=== PATIENT | male | born 1945 | race Caucasian/White ===

== ENCOUNTER 2019-01-31 12:11 | Emergency (ER) | payer MEDICARE, OTHER ==
[~2019-01-31] VITALS: Ht 188 cm; Wt 155.0 kg
[~2019-01-31 12:11] MED LIST: ALBU8HFA PO; BUDE10.2 INH; FLO0.4C PO; GUAI120L55 PO; GUAI600T45 PO; HYDR-4383 PO; HYDR12.5 PO; IPRA3AMP9 NEB; LEVO750T21 PO; LOSA100T57 PO; PANT-47 PO; PRED10TA23 PO; SPIIN INH; SUMA25TA35 PO; TEST75GE TP; VARE1TAB21 PO
[2019-01-31] MEDS ORDERED: ondansetron 4mg rapidly disintigrating tab PO ONE ×2 (12:45→15:40)
[2019-01-31] MEDS ORDERED: HYDROcodone/acetaminophen 10/325mg tab PO ONE ×2 (12:45→15:40)
[2019-01-31 13:03] LABS: CLARITY,URINE CLEAR (Clear); COLOR,URINE YELLOW (Yellow); GLUCOSE, URINE NEGATIVE (Neg); KETONES,URINE NEGATIVE (Neg); LEUKOCYTE ESTERASE ,URINE NEGATIVE (Neg); NITRITES, URINE NEGATIVE (Neg); OCCULT BLOOD,URINE MODERATE (Neg); PROTEIN,URINE NEGATIVE (Neg); UROBILINOGEN,URINE 0.2 E.U/dL (0.2-1.0)
[2019-01-31 13:04] LABS: UA COLLECTION TYPE CLN CATCH MIDSTREAM
[2019-01-31 13:10] LABS: BASOPHILS % (AUTO) 0.6 % (0-1); EOSINOPHILS # (AUTO) 0.1 X10'3 (0-0.9); EOSINOPHILS % (AUTO) 1.7 % (0-6); HEMOGLOBIN 16.7 g/dl (14.0-17.9); LYMPHOCYTES # (AUTO) 0.6 X10'3 (1.1-4.8); LYMPHOCYTES % (AUTO) 7.7 % (21-51); MEAN CORPUSCULAR HEMOGLOBIN 28.4 PG (27.0-31.0); MEAN CORPUSCULAR HGB CONC 33.4 g/dL (33.0-36.5); MEAN CORPUSCULAR VOLUME 85.1 FL (78-98); MEAN PLATELET VOLUME 7.9 FL (7.4-10.4); MONOCYTES # (AUTO) 0.6 X10'3 (0-0.9); MONOCYTES % (AUTO) 6.7 % (2-12); NEUTROPHILS % (AUTO) 83.3 % (42-75); PLATELET COUNT 256 X10'3 (140-440); RED BLOOD COUNT 5.88 X10'6 (4.70-6.10); RED CELL DISTRIBUTION WIDTH 15.5 % (11.5-14.5); WHITE BLOOD COUNT 8.4 X10'3 (4.5-11.0)
[2019-01-31 13:20] LABS: COARSE GRANULAR CAST 0-3 /LPF (NEGATIVE); MUCUS STRANDS MODERATE /LPF (Neg); SQUAMOUS EPITHELIAL CELL,UR MODERATE /LPF (FEW)
[2019-01-31 13:23] LABS: ALANINE AMINOTRANSFERASE 34 U/L (12-78); ALBUMIN 3.3 G/DL (3.4-5.0); ALBUMIN/GLOBULIN RATIO 0.8 (1.1-1.5); ALKALINE PHOSPHATASE 93 IU/L (46-116); ANION GAP 5 (8-16); ASPARTATE AMINO TRANSFERASE 27 U/L (10-37); BILIRUBIN,TOTAL 0.4 MG/DL (0.1-1.0); BLOOD UREA NITROGEN 15 MG/DL (7-18); CALCIUM 8.7 MG/DL (8.5-10.1); CHLORIDE 103 MMOL/L (99-107); CREATININE 0.94 MG/DL (0.60-1.10); GLUCOSE 101 MG/DL (70-104); LIPASE 93 U/L (73-393); POTASSIUM 4.3 MMOL/L (3.5-5.1); SODIUM 136 MMOL/L (135-145); TOTAL CARBON DIOXIDE 28.2 MMOL/L (24-32); TOTAL PROTEIN 7.4 G/DL (6.4-8.2); eGFR 79 ML/MIN
[2019-01-31 13:24] LABS: RBC,URINE 20-50 /HPF (0-2)
[2019-01-31 13:25] LABS: CAL OXALATE CRYSTALS 2+ /HPF (NEGATIVE)
[2019-01-31 13:30] LABS: BACTERIA,URINE FEW /HPF (Neg); WBC,URINE 0-4 /HPF (0-4)
[2019-01-31] MEDS ORDERED: HYDROmorphone 1 mg/ml syringe IM ONE (13:50)
[2019-01-31] MEDS ORDERED: PRED20TA PO (15:28)
[2019-01-31] MEDS ORDERED: ALBU18HF2 INH (15:28)
[2019-01-31] MEDS ORDERED: HYDR-4353 PO (15:28)
[2019-01-31] MEDS ORDERED: DOXY100C43 PO (15:28)
[2019-01-31] MEDS ORDERED: ONDA4TAB6 PO (15:28)
[2019-01-31 15:46] VITALS: BP 167/95
== END 2019-01-31 15:47 | disposition home or self-care (01) ==
LOC: ER 12:14
DX: S22.32XA Fracture of one rib, left side, initial encounter for closed fracture (principal); J20.9 Acute bronchitis, unspecified; R07.89 Other chest pain; E78.00 Pure hypercholesterolemia, unspecified; J44.9 Chronic obstructive pulmonary disease, unspecified; K21.9 Gastro-esophageal reflux disease without esophagitis; Z88.0 Allergy status to penicillin; Z79.899 Other long term (current) drug therapy; Z85.51 Personal history of malignant neoplasm of bladder; X58.XXXA Exposure to other specified factors, initial encounter; Y93.89 Activity, other specified; Y92.89 Other specified places as the place of occurrence of the external cause; Y99.9 Unspecified external cause status
CPT/HCPCS: 36415; 74176; 80053; 81001; 83690; 85025; 96372; 99284; J1170

== ENCOUNTER 2019-08-13 12:57 | Inpatient (IN) | payer MEDICARE, OTHER ==
[2019-08-13] VITALS (11 sets, daily range): BP systolic 123–157; BP diastolic 77–108
[~2019-08-13] VITALS: Ht 188 cm; Wt 165.7 kg
[~2019-08-13 12:57] MED LIST changes: +ALBU18HF2 INH; +ONDA4TAB6 PO
[2019-08-13 13:26] LABS: BASOPHILS # (AUTO) 0.1 X10'3 (0-0.2); EOSINOPHILS # (AUTO) 0.3 X10'3 (0-0.9); EOSINOPHILS % (AUTO) 3.8 % (0-6); HEMATOCRIT 46.9 % (42.0-52.0); HEMOGLOBIN 15.7 g/dl (14.0-17.9); LYMPHOCYTES # (AUTO) 1.8 X10'3 (1.1-4.8); MEAN CORPUSCULAR HEMOGLOBIN 29.4 PG (27.0-31.0); MEAN CORPUSCULAR HGB CONC 33.6 g/dL (33.0-36.5); MEAN CORPUSCULAR VOLUME 87.5 FL (78-98); MEAN PLATELET VOLUME 7.4 FL (7.4-10.4); MONOCYTES # (AUTO) 0.7 X10'3 (0-0.9); MONOCYTES % (AUTO) 7.4 % (2-12); NEUTROPHILS # (AUTO) 6.1 X10'3 (1.8-7.7); NEUTROPHILS % (AUTO) 67.8 % (42-75); PLATELET COUNT 312 X10'3 (140-440); RED BLOOD COUNT 5.36 X10'6 (4.70-6.10); WHITE BLOOD COUNT 9.1 X10'3 (4.5-11.0)
[2019-08-13 13:38] LABS: ALANINE AMINOTRANSFERASE 35 U/L (12-78); ALBUMIN 3.3 G/DL (3.4-5.0); ALBUMIN/GLOBULIN RATIO 0.9 (1.1-1.5); ALKALINE PHOSPHATASE 68 IU/L (46-116); ANION GAP 9 (8-16); ASPARTATE AMINO TRANSFERASE 21 U/L (10-37); BILIRUBIN,TOTAL 0.3 MG/DL (0.1-1.0); BLOOD UREA NITROGEN 17 MG/DL (7-18); BUN/CREATININE RATIO 16.8 (5.4-32.0); CALCIUM 8.3 MG/DL (8.5-10.1); CHLORIDE 108 MMOL/L (99-107); CREATININE 1.01 MG/DL (0.60-1.10); GLUCOSE 101 MG/DL (70-104); POTASSIUM 4.2 MMOL/L (3.5-5.1); SODIUM 144 MMOL/L (135-145); TOTAL CARBON DIOXIDE 26.6 MMOL/L (24-32); TOTAL PROTEIN 6.8 G/DL (6.4-8.2); eGFR 73 ML/MIN
[2019-08-13 13:45] LABS: MAGNESIUM 1.9 MG/DL (1.5-2.4)
[2019-08-13] MEDS ORDERED: heparin 25,000 UNIT/250ml bag 250 ML IV SCH ×2 (13:48→15:44)
[2019-08-13] MEDS ORDERED: heparin 10,000 units/1 ML INJ IV PRN ×2 (13:50→15:45)
[2019-08-13] MEDS ORDERED: heparin 10,000 units/1 ML INJ IV ONE ×3 (13:50→15:45)
[2019-08-13] MEDS ORDERED: nitroGLYCERIN-Tridil 50MG/D5W 250 ML IV SCH ×2 (13:50→13:57)
[2019-08-13 14:05] LABS: PARTIAL THROMBOPLASTIN TIME 27 SECONDS (22-32)
[2019-08-13] MEDS ORDERED: iohexol 350MG/ML 100ml bottle IV ONE ×3 (14:13→18:33)
[2019-08-13] MEDS ORDERED: magnesium 2GM in 50ml NS 50 ML IV PRN (15:45)
[2019-08-13] MEDS ORDERED: acetaminophen 325mg tablet PO PRN (15:45)
[2019-08-13] MEDS ORDERED: magnesium Cl slow-release 64mg tablet PO PRN (15:45)
[2019-08-13] MEDS ORDERED: ondansetron/PF 4mg/2ml inj IV PRN (15:45)
[2019-08-13] MEDS ORDERED: bisacodyl 10mg suppository rectal RC PRN (15:45)
[2019-08-13] MEDS ORDERED: aminophylline 250mg/10ml inj. IV PRN (15:45)
[2019-08-13] MEDS ORDERED: potassium Cl 20 mEq SR tablet PO PRN ×2 (15:45)
[2019-08-13] MEDS ORDERED: potassium CL 10mEq/100ml bag 100 ML IV PRN ×2 (15:45)
[2019-08-13] MEDS ORDERED: nitroGLYCERIN 0.4mg SUBLingual tab SL PRN ×2 (15:45)
[2019-08-13] MEDS ORDERED: mag hydrox/Alum hydrox/simeth 30ml oral suspension PO PRN (15:45)
[2019-08-13] MEDS ORDERED: HYDROcodone/acetaminophen 10/325mg tab PO PRN ×2 (15:45→17:30)
[2019-08-13] MEDS ORDERED: morphine 2 MG/ML inj. syringe IV PRN ×2 (15:45)
[2019-08-13] MEDS ORDERED: magnesium 4gm in 100ml NS 100 ML IV PRN (15:45)
[2019-08-13] MEDS ORDERED: metoprolol tartrate 1mg/ml inj IV PRN (15:45)
[2019-08-13] MEDS ORDERED: magnesium hydroxide 30ml (MOM) UD suspension PO PRN (15:45)
[2019-08-13] MEDS ORDERED: regadenoson 0.4mg/5ml syringe IV ONE (15:45)
[2019-08-13] MEDS ORDERED: ALBU8.5H8 INH (16:04)
[2019-08-13] MEDS ORDERED: FERGLU300T PO (16:06)
[2019-08-13] MEDS ORDERED: HYDR-4353 PO (16:08)
[2019-08-13] MEDS ORDERED: FURO-149 PO (16:11)
[2019-08-13] MEDS ORDERED: POTA-82 PO (16:12)
[2019-08-13] MEDS ORDERED: DOCU-261 PO (16:24)
[2019-08-13] MEDS ORDERED: VITA400C19 PO (16:24)
[2019-08-13] MEDS ORDERED: MULT-1172 PO (16:24)
[2019-08-13] MEDS ORDERED: CHOL100044 PO (16:24)
[2019-08-13 16:43] LABS: BASOPHILS # (AUTO) 0.1 X10'3 (0-0.2); BASOPHILS % (AUTO) 1.1 % (0-1); EOSINOPHILS # (AUTO) 0.3 X10'3 (0-0.9); EOSINOPHILS % (AUTO) 2.9 % (0-6); HEMATOCRIT 48.6 % (42.0-52.0); HEMOGLOBIN 16.2 g/dl (14.0-17.9); LYMPHOCYTES # (AUTO) 1.8 X10'3 (1.1-4.8); LYMPHOCYTES % (AUTO) 17.7 % (21-51); MEAN CORPUSCULAR HEMOGLOBIN 29.4 PG (27.0-31.0); MEAN CORPUSCULAR HGB CONC 33.4 g/dL (33.0-36.5); MEAN CORPUSCULAR VOLUME 88.1 FL (78-98); MEAN PLATELET VOLUME 7.5 FL (7.4-10.4); MONOCYTES # (AUTO) 0.6 X10'3 (0-0.9); MONOCYTES % (AUTO) 5.4 % (2-12); NEUTROPHILS # (AUTO) 7.6 X10'3 (1.8-7.7); NEUTROPHILS % (AUTO) 72.9 % (42-75); PLATELET COUNT 330 X10'3 (140-440); RED BLOOD COUNT 5.51 X10'6 (4.70-6.10); WHITE BLOOD COUNT 10.4 X10'3 (4.5-11.0)
[2019-08-13] MEDS: normal saline 1000ml 1,000 ML IV SCH (16:43)
--- NOTE | 2019-08-13 17:00 | NUR ---
PATIENT RECEIVED REPORT AND PATIENT FROM ER.PATIENT AWAKE ALERT AND ORIENTED. DENIES CHEST PAIN, NAUSEA, AND OR SOB.LAB REPORT SHOWS TROPIN INCREASED FROM 0.35 TO 2.13; DR. GUTIERRES AND DR. JULES APPRISED. HEPARIN INFUSING AT 1000 UNITS PER HOUR.NTG INFUSING AT 5 MCG/HOUR.DR. JULES AT BEDSIDE , ORDERS RECEIVED AND NOTED. PATIENT SIGNED CONSENT FOR HEART CATH. PREP COMPLETED ,PEDAL PULSES MARKED. TRANSFERRED TO PHYSICAL SCIENCES PROFESSOR. Addendum: 08/13/19 at 1857 by Arlene Salinas RN Amended: Links added.
--- NOTE | 2019-08-13 17:03 | NUR ---
PAGER ID: [phone] MESSAGE: 307: JILLIAN - 3 HR TROP UP TO 2.13, FROM 0.35. TY NURSE PAT [id number]
--- NOTE | 2019-08-13 17:03 | NUR ---
DR. ANDERSON CALLED BACK - NEW ORDER RECEIVED - CALL DR. JULES
--- NOTE | 2019-08-13 17:10 | NUR ---
CALLED DR. JULES ANSWER SERVICES CALLED: RELAYED MESSAGE THAT 3HR TROP IS INCREASED TO 2.13 FROM 0.35.
[2019-08-13] MEDS ORDERED: ipratropium/albuterol 3ml nebule NEB PRN (17:20)
--- NOTE | 2019-08-13 17:25 | NUR ---
DR. JULES AT BEDSIDE. AWAITING ORDERS
[2019-08-13] MEDS ORDERED: furosemide 40mg tablet PO PRN (17:30)
[2019-08-13] MEDS ORDERED: LIDOcaine 1% (10mg/ml)w/preservative injection 20ml MDV ONE (17:42)
[2019-08-13] MEDS ORDERED: midazolam 2 mg/2 ml injection ONE (17:42)
[2019-08-13] MEDS ORDERED: iohexol 350 MG/ML 50ML vial IV ONE ×2 (17:42→18:33)
[2019-08-13] MEDS ORDERED: fentaNYL/PF 50MCG/1 ML 2ML syringe ONE (17:42)
--- NOTE | 2019-08-13 18:04 | NUR ---
Dr. Neal consulted with patient, explained procedure. Consent signed by patient. Dr. Osei consulted with patient. All patient questions and concerns were addressed. Prepped for heart cath. Tidil infusion at 5mcg/min, Heparin infusion 1000u/hr, NS 100ml/hr. Pedal pulses marked, transferred to clinical lab clerk by JEROME Avery.
[2019-08-13] MEDS ORDERED: proCHLORperazine 10 MG/2 ml inj ONE (18:20)
--- NOTE | 2019-08-13 19:50 | NUR ---
Patient in room MED 307. I have received report from phlebotomist medical lab assistant RN and had the opportunity to ask questions and assume patient care.
[2019-08-13] MEDS: budesonide 0.5mg/2ml UD nebule IH SCH (19:52)
[2019-08-13] MEDS: ipratropium/albuterol 3ml nebule IH SCH (19:52)
--- NOTE | 2019-08-13 19:52 | NUR ---
pt arrived to unit fem stop present, no hematoma present, no bleeding noted. pedal pulse present. monitoring vitals/ protocol. heparin drip d/c.
[2019-08-13] MEDS ORDERED: clopidogrel 300mg tablet PO ONE (19:55)
[2019-08-13] MEDS ORDERED: OXAZEpam 15mg capsule PO PRN (20:00)
[2019-08-13] MEDS ORDERED: proCHLORperazine 10 MG/2 ml inj IV PRN (20:00)
[2019-08-13] MEDS ORDERED: HYDROcodone/acetaminophen 5mg/325mg tablet PO PRN (20:00)
[2019-08-13] MEDS ORDERED: albuterol 2.5 MG/3 ML nebule NEB SCH (20:00)
[2019-08-13] MEDS ORDERED: ipratropium 0.5 MG/2.5ML nebule IH SCH (20:00)
[2019-08-13] MEDS: metoprolol tartrate 12.5mg (1/2 tablet) PO SCH (20:12)
[2019-08-13] MEDS: acetaminophen 325mg tablet PO PRN (20:13)
--- NOTE | 2019-08-13 20:48 | NUR ---
Dr. Blake notified r/t SBP greater than 150. no chest pain new orders as followed, increase nitroglycerin drip to 10 mcg/min = 3ml/hr new parameter, maintain SBP 140 or less. cpap PRN will continue to monitor
[2019-08-13] MEDS: losartan 50mg tablet PO SCH (21:04)
[2019-08-13] MEDS: atorvastatin 20mg tablet PO SCH (21:04)
[2019-08-13 21:32] LABS: PARTIAL THROMBOPLASTIN TIME 27 SECONDS (22-32)
[2019-08-13] MEDS: HYDROcodone/acetaminophen 10/325mg tab PO PRN (21:57)
[2019-08-14] VITALS (8 sets, daily range): BP systolic 114–176; BP diastolic 68–98
[2019-08-14] MEDS: normal saline 1000ml 1,000 ML IV SCH ×3 (02:40→21:44)
[2019-08-14] MEDS: ipratropium/albuterol 3ml nebule IH SCH ×4 (03:11→20:31)
[2019-08-14 05:38] LABS: BASOPHILS # (AUTO) 0.1 X10'3 (0-0.2); BASOPHILS % (AUTO) 0.6 % (0-1); EOSINOPHILS # (AUTO) 0.3 X10'3 (0-0.9); EOSINOPHILS % (AUTO) 2.6 % (0-6); HEMATOCRIT 44.4 % (42.0-52.0); HEMOGLOBIN 14.7 g/dl (14.0-17.9); LYMPHOCYTES # (AUTO) 2.1 X10'3 (1.1-4.8); LYMPHOCYTES % (AUTO) 20.1 % (21-51); MEAN CORPUSCULAR HEMOGLOBIN 29.4 PG (27.0-31.0); MEAN CORPUSCULAR HGB CONC 33.1 g/dL (33.0-36.5); MEAN CORPUSCULAR VOLUME 88.7 FL (78-98); MEAN PLATELET VOLUME 7.9 FL (7.4-10.4); MONOCYTES # (AUTO) 0.7 X10'3 (0-0.9); MONOCYTES % (AUTO) 6.8 % (2-12); NEUTROPHILS # (AUTO) 7.4 X10'3 (1.8-7.7); NEUTROPHILS % (AUTO) 69.9 % (42-75); PLATELET COUNT 292 X10'3 (140-440); RED BLOOD COUNT 5.01 X10'6 (4.70-6.10); RED CELL DISTRIBUTION WIDTH 16.4 % (11.5-14.5); WHITE BLOOD COUNT 10.6 X10'3 (4.5-11.0)
[2019-08-14 05:59] LABS: ALBUMIN 3.1 G/DL (3.4-5.0); ANION GAP 8 (8-16); BLOOD UREA NITROGEN 13 MG/DL (7-18); CHLORIDE 109 MMOL/L (99-107); CHOL/HDL RATIO 4.6 (0.00-4.99); CHOLESTEROL 146 MG/DL (0-200); CREATININE 0.81 MG/DL (0.60-1.10); GLUCOSE 90 MG/DL (70-104); HDL CHOLESTEROL 32 MG/DL (35-60); LDL CHOLESTEROL 98 MG/DL (50-100); POTASSIUM 3.9 MMOL/L (3.5-5.1); SODIUM 144 MMOL/L (135-145); TOTAL CARBON DIOXIDE 26.7 MMOL/L (24-32); TRIGLYCERIDES 123 MG/DL (20-135); eGFR > 90 ML/MIN
--- NOTE | 2019-08-14 06:15 | NUR ---
Patient in room MED 307. I have received report from JEROME Sexton and had the opportunity to ask questions and assume patient care.
[2019-08-14] MEDS: losartan 50mg tablet PO SCH ×2 (07:47→20:19)
[2019-08-14] MEDS: tamsulosin 0.4mg capsule PO SCH (07:47)
[2019-08-14] MEDS: atorvastatin 20mg tablet PO SCH (07:47)
[2019-08-14] MEDS: aspirin 325mg tablet PO SCH (07:48)
[2019-08-14] MEDS: metoprolol tartrate 12.5mg (1/2 tablet) PO SCH ×2 (07:48→20:22)
[2019-08-14] MEDS: clopidogrel 75mg tablet PO SCH (07:48)
[2019-08-14] MEDS: HYDROcodone/acetaminophen 10/325mg tab PO PRN ×3 (07:48→21:07)
[2019-08-14] MEDS: amLODIPine 5mg tablet PO SCH (07:48)
[2019-08-14] MEDS: budesonide 0.5mg/2ml UD nebule IH SCH ×2 (08:00→20:31)
[2019-08-14] MEDS: K and/or MAG REPLACEMENT MC SCH (08:00)
[2019-08-14] MEDS ORDERED: losartan 50mg tablet PO SCH (08:00)
--- NOTE | 2019-08-14 10:06 | NUR ---
PAGER ID: [phone] MESSAGE: [phone]: LOBO - c/o severe headache. unrelieved w/ Russell. still on tridil gtt @ 10mcg/min. bp stable 111/68. decrease tridil to 5mcg or just turn off gtt? nurse claudio [phone]
--- NOTE | 2019-08-14 10:30 | NUR ---
SPOKE WITH DR. VERGARA. NEW ORDERS RECEIVED: DECREASE NITRO GTT TO 5MCG/MIN. WILL CONTINUE TO MONITOR
[2019-08-14] MEDS ORDERED: nitroGLYCERIN-Tridil 50MG/D5W 250 ML IV SCH ×2 (10:35→13:57)
--- NOTE | 2019-08-14 11:26 | NUR ---
Nitroglycerin drip reduced to 1.5ml/hr (5mcg/min), per Dr. Osei.
--- NOTE | 2019-08-14 12:00 | NUR ---
Patient reports constant headache and that [place] has not worked. Administered Morphine 1mg.
--- NOTE | 2019-08-14 13:00 | NUR ---
Patient reported the Morphine was effective.
--- NOTE | 2019-08-14 13:31 | NUR ---
Per roque Avila for patient to be saline locked for ambulation. Encourage ambulations.
--- NOTE | 2019-08-14 14:32 | NUR ---
DR. JULES UPDATED. NEW ORDERS RECEIVED: D/C NITRO GTT, AMBULATE PATIENT. WILL CONTINUE TO MONITOR
--- NOTE | 2019-08-14 14:36 | NUR ---
PAGER ID: [phone] MESSAGE: 307: JILLIAN - new orders from Ángel. D/C nitro gtt, no new meds at this time. Cont ASA, Plavix, Lopressor. nurse Stefany ext [phone]
--- NOTE | 2019-08-14 15:22 | NUR ---
Radiology paged, patient transported by [employer].
--- NOTE | 2019-08-14 17:12 | NUR ---
PAGER ID: [phone] MESSAGE: Aubrey Maxwell, #[phone] - Pt requests Nicotine patch. Uses 21mg patches at home. Thank you -JEROME Guadalupe on ACCE
--- NOTE | 2019-08-14 18:00 | NUR ---
Problems reprioritized. Patient report given, questions answered & plan of care reviewed with JEROME Herbert.
[2019-08-14] MEDS ORDERED: nitroGLYCERIN 0.2mg/hour patch TD ONE (21:30)
[2019-08-14] MEDS: acetaminophen 325mg tablet PO PRN (23:33)
[2019-08-15 02:00] VITALS: BP 150/77
[2019-08-15] MEDS: HYDROcodone/acetaminophen 10/325mg tab PO PRN ×2 (02:22→08:16)
[2019-08-15] MEDS: ipratropium/albuterol 3ml nebule IH SCH ×3 (03:00→13:22)
[2019-08-15 06:29] LABS: BASOPHILS # (AUTO) 0.1 X10'3 (0-0.2); BASOPHILS % (AUTO) 0.8 % (0-1); EOSINOPHILS # (AUTO) 0.3 X10'3 (0-0.9); EOSINOPHILS % (AUTO) 3.2 % (0-6); HEMATOCRIT 45.2 % (42.0-52.0); HEMOGLOBIN 15.2 g/dl (14.0-17.9); LYMPHOCYTES # (AUTO) 1.9 X10'3 (1.1-4.8); LYMPHOCYTES % (AUTO) 21.3 % (21-51); MEAN CORPUSCULAR HEMOGLOBIN 29.6 PG (27.0-31.0); MEAN CORPUSCULAR HGB CONC 33.6 g/dL (33.0-36.5); MEAN PLATELET VOLUME 7.7 FL (7.4-10.4); MONOCYTES # (AUTO) 0.7 X10'3 (0-0.9); MONOCYTES % (AUTO) 7.7 % (2-12); NEUTROPHILS # (AUTO) 5.9 X10'3 (1.8-7.7); PLATELET COUNT 285 X10'3 (140-440); RED BLOOD COUNT 5.14 X10'6 (4.70-6.10); RED CELL DISTRIBUTION WIDTH 15.8 % (11.5-14.5); WHITE BLOOD COUNT 8.8 X10'3 (4.5-11.0)
[2019-08-15 06:46] VITALS: BP 133/90
[2019-08-15 06:47] LABS: ALBUMIN 3.3 G/DL (3.4-5.0); ANION GAP 8 (8-16); BLOOD UREA NITROGEN 15 MG/DL (7-18); BUN/CREATININE RATIO 18.1 (5.4-32.0); CALCIUM 8.1 MG/DL (8.5-10.1); CHLORIDE 108 MMOL/L (99-107); CREATININE 0.83 MG/DL (0.60-1.10); GLUCOSE 98 MG/DL (70-104); PHOSPHORUS 3.3 MG/DL (2.3-4.5); POTASSIUM 4.2 MMOL/L (3.5-5.1); SODIUM 143 MMOL/L (135-145); TOTAL CARBON DIOXIDE 26.6 MMOL/L (24-32); eGFR > 90 ML/MIN
[2019-08-15] MEDS: budesonide 0.5mg/2ml UD nebule IH SCH (07:35)
[2019-08-15] MEDS: K and/or MAG REPLACEMENT MC SCH (08:00)
[2019-08-15] MEDS: aspirin 325mg tablet PO SCH (08:03)
[2019-08-15] MEDS: clopidogrel 75mg tablet PO SCH (08:04)
[2019-08-15] MEDS: tamsulosin 0.4mg capsule PO SCH (08:04)
[2019-08-15] MEDS: metoprolol tartrate 12.5mg (1/2 tablet) PO SCH (08:04)
[2019-08-15] MEDS: amLODIPine 5mg tablet PO SCH (08:05)
[2019-08-15] MEDS: atorvastatin 20mg tablet PO SCH (08:06)
[2019-08-15] MEDS: losartan 50mg tablet PO SCH (08:06)
[2019-08-15 11:00] VITALS: BP 144/90
[2019-08-15] MEDS ORDERED: NOR5T PO (12:04)
[2019-08-15] MEDS ORDERED: CLOP75TA35 PO (12:04)
[2019-08-15] MEDS ORDERED: NITR0.4T51 SL (12:04)
[2019-08-15] MEDS ORDERED: ASPI-1 PO (12:04)
[2019-08-15] MEDS ORDERED: METO25TA6 PO (12:04)
[2019-08-15] MEDS ORDERED: ATOR20TA66 PO (12:04)
[2019-08-15] MEDS: acetaminophen 325mg tablet PO PRN (13:40)
--- NOTE | 2019-08-15 14:05 | NUR ---
Discharged patient at this time, escorted out at 1405 to patient private vehicle via W/C accompanied with son and daughter in law without event. Instructed patient on discharge instructions and to pickup meds at [facility] on [address]. Dr. Neal wants patient to call his office tomorrow to schedule follow up O.P. heart cath, informed patient to call Dr. Neal office tomorrow. Discontinued IV and tele. Belongings sent with patient. Cleansed small open area to right upper chest and covered it with optifoam and told him to make MD aware of the origin of the wound. Eager to go home.
== END 2019-08-15 14:05 | disposition home or self-care (01) | DRG 281 ==
LOC: ER 12:58 → ED HOLD 16:01 → EDBEDREQ 16:04 → MED 3N 16:50 → OBSVTOIN 08-14 13:30
PROVIDERS: ADMIT Family Medicine; ATTEND Family Medicine
PROC: 4A023N7 Measurement of Cardiac Sampling and Pressure, Left Heart, Percutaneous Approach (ICD-10-PCS; principal; 2019-08-13)
PROC: B2111ZZ Fluoroscopy of Multiple Coronary Arteries using Low Osmolar Contrast (ICD-10-PCS; 2019-08-13)
PROC: B2151ZZ Fluoroscopy of Left Heart using Low Osmolar Contrast (ICD-10-PCS; 2019-08-13)
PROC: B3101ZZ Fluoroscopy of Thoracic Aorta using Low Osmolar Contrast (ICD-10-PCS; 2019-08-13)
PROC: B32T1ZZ Computerized Tomography (CT Scan) of Left Pulmonary Artery using Low Osmolar Contrast (ICD-10-PCS; 2019-08-13)
PROC: B3201ZZ Computerized Tomography (CT Scan) of Thoracic Aorta using Low Osmolar Contrast (ICD-10-PCS; 2019-08-13)
PROC: B32S1ZZ Computerized Tomography (CT Scan) of Right Pulmonary Artery using Low Osmolar Contrast (ICD-10-PCS; 2019-08-13)
DX: I21.4 Non-ST elevation (NSTEMI) myocardial infarction (principal); Z68.42 Body mass index [BMI] 45.0-49.9, adult; C67.9 Malignant neoplasm of bladder, unspecified; E66.01 Morbid (severe) obesity due to excess calories; E78.00 Pure hypercholesterolemia, unspecified; F41.1 Generalized anxiety disorder; G47.33 Obstructive sleep apnea (adult) (pediatric); G89.4 Chronic pain syndrome; M54.5 Low back pain; I10 Essential (primary) hypertension; I25.119 Atherosclerotic heart disease of native coronary artery with unspecified angina pectoris; J43.9 Emphysema, unspecified; K21.9 Gastro-esophageal reflux disease without esophagitis; K76.89 Other specified diseases of liver; Z72.0 Tobacco use; Z85.828 Personal history of other malignant neoplasm of skin; Z85.841 Personal history of malignant neoplasm of brain; Z88.0 Allergy status to penicillin; Z82.5 Family history of asthma and other chronic lower respiratory diseases; Z80.9 Family history of malignant neoplasm, unspecified; I44.0 Atrioventricular block, first degree
CPT/HCPCS: 36415; 71045; 71275; 80048; 80053; 80061; 83735; 83880; 84100; 84484; 85025; 85347; 85610; 85730; 87081; 93005; 93308; 93458; 93567; 94640; 94760; 96365; 96376; 99152; 99153; 99285; A4620; A6258; C1769; G0378; J0780; J1644; J2001; J2250; J2270; J3010; J3490; J7030; J7626; Q9967

== ENCOUNTER 2025-08-14 00:28 | Inpatient (IN) | payer OTHER, MEDICARE ==
[2025-08-14] VITALS (14 sets, daily range): BP systolic 140–141; BP diastolic 77–79; PULSE 59–83; RESP 15–22; TEMP 97–97.3; O2SAT 90–93
[~2025-08-14] VITALS: Ht 188 cm; Wt 184.0 kg
[~2025-08-14 00:28] MED LIST changes: -ALBU18HF2 INH; +ALBU8.5H17 INH; -ALBU8HFA PO; +ASPI-1 PO; +ATOR20TA66 PO; +CHOL100044 PO; +CLOP75TA34 PO; +DOCU-337 PO; +FERR324T23 PO; -FLO0.4C PO; +FURO-149 PO; -GUAI120L55 PO; -GUAI600T45 PO; +HYDR-4353 PO; -HYDR-4383 PO; -HYDR12.5 PO; -IPRA3AMP9 NEB; -LEVO750T21 PO; +LOP25T PO; -LOSA100T57 PO; +LOSA100T58 PO; +MULT-1172 PO; +NITR0.4T51 SL; +NOR5T PO; -ONDA4TAB6 PO; -PANT-47 PO; +POTA-366 PO; -PRED10TA23 PO; -SUMA25TA35 PO; +TAMS-55 PO; -TEST75GE TP; -VARE1TAB21 PO; +VITA-336 PO
--- NOTE | 2025-08-14 00:42 | ELECTROCARDIOGRAPH REPORT ---
[facility] Test Date: 2025-08-14 Test Time: 00:39:05 Pat Name: MATTIE WALSH Department: EMERGENCY ROOM Patient ID: 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 Elmer Pelaez Measurements Intervals [place] Rate: 72 P: 121 ID: [id number] QRS: 11 QRSD: 112 T: 66 QT: 429 QTc: 470 Interpretive Statements Sinus rhythm Prolonged ID interval Borderline intraventricular conduction delay Electronically Signed On 08-14-2025 1:05:[address] Elmer Pelaez Please click the below link to view image of tracing.
[2025-08-14 01:22] LABS: MEAN PLATELET VOLUME 7.5 FL (7.4-10.4); RED CELL DISTRIBUTION WIDTH 17.1 % (11.5-14.5)
[2025-08-14 01:41] LABS: CREATININE 1.02 MG/DL (0.60-1.10); PRO BRAIN NATRIURETIC PEPTIDE 280 PG/ML (0-450); TOTAL CARBON DIOXIDE 37.2 MMOL/L (24-32); eCRCL 69 ML/MIN; eGFR 71 ML/MIN
--- NOTE | 2025-08-14 02:48 | RADIOLOGY REPORT ---
CHEST RADIOGRAPH Indication: CP Technique: 1 view Comparison: None FINDINGS: Lines and Tubes: None Lungs/Pleura: Bilateral perihilar interstitial prominence. No focal consolidation, pleural effusion or pneumothorax. Cardiomediastinum: Cardiomegaly. Other: No acute osseous abnormality. IMPRESSION: 1. Heart failure pattern. No focal consolidation.
--- NOTE | 2025-08-14 03:19 | Physician Documentation ---
History of Present Illness ~ Chief Complaint: Shortness of Breath Stated Complaint: SOB Time Seen by MD: 03:12 OK to notify your PCP?: Yes Primary Medical Doctor: HUSSEIN Source: patient, RN/MD, EMS, RN notes reviewed, EMS notes reviewed, old records Mode of Arrival: EMS Exam Limitations: no limitations HPI This was brought in for shortness of breath he fell earlier in the day requiring lift assist. Patient is not on any blood thinners had no head trauma. No loss of consciousness. Patient does have a history of COPD and heart failure he is also on home oxygen with 2-4 L and usually sats at 90%. Patient was given a duo neb in the field and had an oxygen saturation of 99% but is now here for evaluation. 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 He has a large 4 x 4 mass to his left forearm. However while he was at the facility he required oxygen which is new. He was up to 4 L of oxygen his sats were at 80% and they canceled the surgery because they wanted him at a higher level. Surgery was canceled he comes back home where he has been having increasing shortness of breath difficulty breathing he fell he had three nebulized treatments today which is unusual. His last neb treatment by EMS and ambulance patient is feeling much better. Nevertheless he is on 4-6 L which is more than his baseline of 2 L which is usually intermittent. He now seems to be oxygen dependent. Patient denies any chest pain no fevers chills no sputum production he is feeling weak falling and short of breath. Medication Reconciliation Allergies: Coded Allergies: Penicillins (Verified Allergy, Mild, 02/23/16) morphine (Verified Adverse Reaction, Unknown, 08/14/25) RASH, HEADACHE Scheduled Amlodipine Besylate (Amlodipine Besylate), 5 MG PO Q24H Aspirin (Aspirin), 325 MG PO DAILY@0830 Atorvastatin Calcium (Atorvastatin Calcium), 80 MG PO DAILY Budesonide/Formoterol Fumarate (Symbicort 160-4.5 Mcg Inhaler), 2 PUFFS INH BID, (Reported) Cholecalciferol (Vitamin D), 4,000 UNIT PO DAILY, (Reported) Clopidogrel Bisulfate (Clopidogrel), 75 MG PO DAILY Docusate Sodium (Stool Softener), Unknown Dose PO BID, (Reported) Ferrous Gluconate (Ferrous Gluconate), 324 MG PO BID, (Reported) Losartan Potassium (Losartan Potassium), 0.5 TABLET PO DAILY, (Reported) Metoprolol Tartrate* (Lopressor tablet*), 12.5 MG PO BID Multivit-Min/FA/Lycopen/Lutein (Centrum Silver Men Tablet), 1 TAB PO DAILY, (Reported) Tamsulosin Hcl* (Flomax*), 2 CAP PO DAILY, (Reported) Tiotropium [place] (SPIRIVA inhaler), 1 CAP INH DAILY, (Reported) Vitamin E (Dl, Acetate) (Vitamin E), 400 UNIT PO DAILY, (Reported) Scheduled PRN Albuterol Sulfate (Proair Hfa), 2 PUFFS INH Q4HPRN PRN for SOB or wheezing, (Reported) Furosemide (Lasix), 1 TAB PO DAILY PRN for EDEMA, (Reported) Hydrocodone Bit/Acetaminophen ([place] 10-325 Tablet), 1 TAB PO Q8H PRN for pain, (Reported) Nitroglycerin SL* (Nitrostat SL*), 0.4 MG SL Q5MIN PRN for chest pain Potassium Chloride (Potassium Chloride), 1 TAB PO DAILY PRN for CONCURRENT WITH LASIX, (Reported) Past Medical History Past Medical History: High Cholesterol, COPD, Pneumonia, GERD, *CANCER*, Brain Cancer Past Surgical History: no surgical history Patient History: (COPD) Chronic obstructive lung disease MOTHER (Cancer) Malignant carcinoid tumor MOTHER, Onset:60 years & older (Breast) Alcohol Use: Rarely Drug Use: none Lives with: Family Lives In: Home Occupation: retired Review of Systems All Other Systems at this time: Reviewed and Negative Physical Exam Vital Signs: RN Vital Signs have been reviewed: Yes, Temperature: 98.2, Source: Oral, Heart Rate: 76, Respiratory Rate: 17, BP: 148/90, Pulse Oximetry: 92, Weight: 184.000 Oxygen Flow Rate: 2.0 Physical Exam General: The patient is well developed, well nourished, nontoxic appearing and is in mild acute distress. Morbidly obese Skin: [place], warm and dry with no rashes. HEENT: Head was normocephalic and atraumatic. Eyes - pupils equal, round, reactive to light and accommodation. Extraocular movements were intact. Conjunctivae were nonicteric. The mouth and oropharynx were clear with moist mucous membranes. There were no pharyngeal exudates or erythema. Lips are slightly cyanotic with central cyanosis Neck: Supple and nontender. There was no jugular venous distention, lymphadenopathy, thyromegaly or masses. Chest: Clear to auscultation bilaterally with trace diffuse expiratory wheezes, trace basilar rales no rhonchi. No accessory muscle use. No dullness to percussion. Poor air movement Heart: Rate regular and rhythmic. S1, S2. No murmurs. Palpation of the chest wall was normal. No rubs or thrills. Abdomen: Soft, nontender and distended. Positive bowel sounds. No guarding or rebound. No hepatosplenomegaly or palpable masses. Extremities: No cyanosis, clubbing or bilateral 2+ pitting edema. The patient moves all extremities. Pulses were equal and symmetric. Neurologic: Motor sensory grossly intact Psychologic: The patient was oriented to person, place and time. The patient demonstrated appropriate judgement and insight. Progress Progress Note 4:15 a.m. discussed the case with the hospitalist regarding treatment management both from heart failure, morbid obesity, [place] in breathing, hypercapnia, COPD exacerbation. Patient will be admitted for further workup and care. Results/Orders Results/Orders Orders - MELITON PELAEZ MD Chest,Single View (08/14/25 00:34) Monitor (08/14/25 00:34) Saline Lock (08/14/25 00:34) Oxygen (08/14/25 00:34) BMP (08/14/25 00:34) PBNP (08/14/25 00:34) Electrocardiogram (08/14/25 00:34) Hs Troponin I W Calculations (08/14/25 02:34) Hs Troponin I W Calculations (08/14/25 03:34) Svn Treatment (08/14/25 03:28) Culture Blood (08/14/25 03:29) Azithromycin/Ns 500mg/250ml (Zithromax/N (08/14/25 08:00) Hs Troponin I W Calculations (08/14/25 06:29) Page Hospitalist (08/14/25 03:33) Fill Out Med Reconciliation (08/14/25 03:33) Abg (Arterial Blood Gas) (08/14/25 ) Liver Panel (08/14/25 01:10) Completed Orders - MELITON PELAEZ MD Chest,Single View (08/14/25 00:34) Cbc/Diff (08/14/25 00:34) Electrocardiogram (08/14/25 00:34) Hs Troponin I W Calculations (08/14/25 00:34) Methylprednisolone Sod Succ (Solumedrol (08/14/25 03:30) Ipratropium/Albuterol Nebule (Ipratrop/A (08/14/25 03:30) Procalcitonin (08/14/25 03:29) Ceftriaxone 2gm/D5w 50ml Bag (Rocephin 2 (08/14/25 03:30) Lacticsepsis (08/14/25 03:29) Furosemide Inj (Lasix Inj) (08/14/25 03:35) Medications Received in ER Medications (Trade) Dose Ordered Sig/Gomez Route PRN Reason Start Time Stop Time Status Last Admin Dose Admin (ipratrop/ albuterol 0.5-3(2.5) MG/3ml nebule) 3 ml ONCE ONCE NEB 08/14/25 03:30 08/14/25 03:31 DC 08/14/25 03:47 3 ML Vital Signs 08/14/25 08/14/25 08/14/25 08/14/25 00:36 01:18 03:20 04:09 Temp 98.2 98.2 Pulse 76 76 77 Resp 23 17 17 20 B/P (MAP) 148/90 147/72 (97) Pulse Ox 92 91 92 O2 Delivery Nasal Cannula* O2 Flow Rate 2.0 4.0 3 FiO2 32 08/14/25 04:18 Pulse 71 Resp 20 Pulse Ox 92 O2 Delivery Nasal Cannula* O2 Flow Rate 4 FiO2 36 Laboratory Tests Test 08/14/25 01:10 08/14/25 03:57 White Blood Count 10.3 Red Blood Count 5.94 Hemoglobin 16.5 Hematocrit 51.3 Mean Corpuscular Volume 86.4 Mean Corpuscular Hemoglobin 27.8 Mean Corpuscular Hemoglobin Concent 32.1 L Red Cell Distribution Width 17.1 H Platelet Count 205 Mean Platelet Volume 7.5 Neutrophils (%) (Auto) 74.9 Lymphocytes (%) (Auto) 15.3 L Monocytes (%) (Auto) 6.9 Eosinophils (%) (Auto) 2.1 Basophils (%) (Auto) 0.8 Neutrophils # (Auto) 7.8 H Lymphocytes # (Auto) 1.6 Monocytes # (Auto) 0.7 Eosinophils # (Auto) 0.2 Basophils # (Auto) 0.1 CBC Comment Sodium Level 147 H Potassium Level 4.3 Chloride Level 106 Carbon Dioxide Level 37.2 H Anion Gap 4 L Blood Urea Nitrogen 19 H Creatinine 1.02 Estimated GFR/1.73 m2 71 BUN/Creatinine Ratio 18.6 Glucose Level 111 H Lactic Acid Level 1.0 Calcium Level 8.7 Troponin I High Sensitivity 24 Pro-B-Type Natriuretic Peptide 280 Albumin 2.8 L Procalcitonin 0.11 Chemistry Comments Blood Gas Specimen Type Arterial Blood Gas Puncture Site Lr O2 Saturation 89.3 L Arterial Blood pH (Temp corrected) 7.311 L Arterial Blood pCO2 (Temp correct) 57.3 H Arterial Blood pO2 (Temp corrected) 53.8 *L Arterial Blood PO2/FiO2 Ratio 1.61 Arterial Blood HCO3 28.4 H Arterial Blood Base Excess 0.4 Arterial Blood Oxyhemoglobin 82.5 L Arterial Blood Carboxyhemoglobin 7.6 H Arterial Blood Methemoglobin 0.0 Arterial Blood Deoxyhemoglobin 9.9 H Leonardo Test Modified Blood Gas Hemoglobin 17.7 H Blood Gas Temperature 36.7 Blood Gas Liter Flow 4 Blood Gas Modality Nasal cannula FiO2 34.0 Blood Gas Critical Value Called To Mian pelaez Re-Evaluation Re-evaluation : Bronchodilator Tx Response: moderate relief Re-Evaluation: Improved Progress This presents with increasing falls failed outpatient surgery due to low oxygenation and sats which is new for him. Patient has a history of COPD as well as heart failure. Patient is requiring increasing oxygen use and increasing nebulized treatments denies any PND or orthopnea although he does have superimposed heart failure issues as well with his hypoxia. Patient's initial laboratory work shows a WBC of 10.3 hemoglobin 16 hematocrit 51 platelets 205 which is reassuring in that there was no significant signs of infection. Patient's sodium slightly elevated at 147 which is above his baseline. He also has some CO2 retention with 37.2 on chemistry. Creatinine is 1.02. Troponin negative at 24. ProBNP 280. Patient is morbidly obese with a BMI of 52. Patient was then given nebulized treatments Lasix 60 mg as far as COPD exacerbation although I do not see any infiltrates he has a high-risk patient for decompensation from possible bronchitis and pneumonia. Patient received Zithromax as well as Rocephin. Patient received Solu-Medrol and a neb treatment. Finally patient was then admitted to the hospitalist service for further workup and care. Patient's ABG was a bit concerning with a mixed respiratory picture. PH of 7.311 pCO2 is significantly elevated at 57.3 but also hypoxic at 53.84 oxygen. Success is 0.4 with oxyhemoglobin at 82 and carboxyhemoglobin elevated at 7.6. Continuous manager mall interpretation shows normal sinus rhythm heart rate 70s, no ectopy, normal, my interpretation. Pulse oximetry monitor interpretation shows low oxygenation at 91% on 6 L oxygen, abnormal, my interpretation. 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 Meliton Pelaez Measurements Intervals [place] Rate: 72 P: 121 NE: 285 QRS: 11 QRSD: 112 T: 66 QT: 429 QTc: 470 Interpretive Statements Sinus rhythm Prolonged NE interval Borderline intraventricular conduction delay Electronically Signed On 08-14-2025 1:05:[address] Meliton Pelaez Please click the below link to view image of tracing. Chest X-Ray : Additional Comments CHEST RADIOGRAPH Indication: CP Technique: 1 view Comparison: None FINDINGS: Lines and Tubes: None Lungs/Pleura: Bilateral perihilar interstitial prominence. No focal consolidation, pleural effusion or pneumothorax. Cardiomediastinum: Cardiomegaly. Other: No acute osseous abnormality. IMPRESSION: 1. Heart failure pattern. No focal consolidation. Electronically Signed by:PAULA HUNTER MD Medical Decision Making Additional info obtained from: old records Differential Dx:Considerations: Include: asthma, bronchitis, CHF, COPD, dysrhythmia, hypertension, accelerated, hyponatremia, myocardial infarction, p anic attack, pneumonia, pneumonitis, pneumothorax, pulmonary embolism, respiratory distress, sinusitis, upper resp. infection, other Departure Disposition: ADMITTED INPATIENT Admitted to Inpatient Unit: to hospitalist Admission Level of Care: PCU with Tele Impression: Primary Impression: Hypoxemia Additional Impressions: Acute exacerbation of chronic obstructive airways disease Acute on chronic diastolic heart failure Hypercarbia Condition: Guarded Referrals: NO PRIMARY CARE PROVIDER (PCP) Education Educated: Patient, Family Educated regarding: diagnosis, prognosis, need for follow up, other Critical Care Note Total Time (mins): 30 Critical Care Note The very real possibility of a deterioration of this patient's condition required the highest level of my preparedness for sudden, emergent intervention. I provided critical care services, which included medication orders, frequent reevaluations of the patient's condition and response to treatment, ordering and reviewing test results, and discussing the case with various consultants. Excludes time spent performing separately billable procedures. The critical care time associated with the care of the patient was. 30 minutes Signature Scribe Signature: No scribed Attestation: The note accurately reflects work and decisions made by me.Meliton Pelaez MD 08/14/25 03:35 MELITON PELAEZ MD Aug 14, 2025 03:19
[2025-08-14] MEDS: furosemide 10 MG/1 ML 10ml inj IV ONE (03:35)
[2025-08-14] MEDS: ipratropium/albuterol 3ml nebule NEB ONE (03:47)
[2025-08-14 04:04] LABS: ABG BASE EXCESS 0.4 mmol/L (-2.0-3.0); ABG HCO3 28.4 mmol/L (21.0-28.0); ABG OXYGEN SATURATION 89.3 % (94.0-98.0); ABG PCO2 (T) 57.3 mmHg (35.0-48.0); ABG PH (T) 7.311 (7.350-7.450); ABG PO2 (T) 53.8 mmHg (83.0-108.0); ALLEN'S TEST Modified; FCOHb 7.6 % (0.5-1.5); FHHb 9.9 % (0.0-5.0); FIO2 34.0 mmHg/%; FLOW 4 L/min; FMetHb 0.0 % (0.0-1.5); FO2Hb 82.5 % (94.0-98.0); MODE NASAL CANNULA; PATIENT TEMPERATURE 36.7; TOTAL HEMOGLOBIN 17.7 G/dl (13.5-17.5)
[2025-08-14] MEDS ORDERED: magnesium Cl slow-release 64mg tablet PO PRN (04:45)
[2025-08-14] MEDS ORDERED: magnesium sulf-water 4G/100mL 100 ML IV PRN (04:45)
[2025-08-14] MEDS ORDERED: potassium Cl 40MEQ/1/2NS 520ml 520 ML IV PRN (04:45)
[2025-08-14] MEDS ORDERED: magnesium sulf-water 2g/50mL 50 ML IV PRN (04:45)
[2025-08-14] MEDS ORDERED: potassium Cl 20 mEq SR tablet PO PRN ×2 (04:45)
--- NOTE | 2025-08-14 05:17 | HISTORY AND PHYSICAL-Residence ---
History & Physical Providers to CC Resident Creating Document: KAROLINA BLUESHELBY ~ History of Present Illness Primary Medical Doctor: HUSSEIN Reason for Admit\Complaint: Shortness of breaths History of Present Illness 80 years old male with history of CHF, COPD, coronary artery disease status post stent, myocardial infarction, obstructive sleep apnea obesity BMI 52, brought to the ED due to shortness of breaths. Patient lives at home alone and has caregiver. Patient is respiratory distress and information gathered from patient and his family family and medical chart. 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 Patient did not hit her head or injured himself however he became hypoxic to 80%. Patient had to 4 L oxygen at home but usually he is not using it. He reported increased coughing and small amount of sputum, denied orthopnea however had bilateral severe edema. He did not know about worsening of lower extremity edema. Patient had history of COPD and use inhaler at home. He denied chest pain, fever or chills, abdominal pain, nausea vomiting. Allergies: Coded Allergies: Penicillins (Verified Allergy, Mild, 02/23/16) morphine (Verified Adverse Reaction, Unknown, 08/14/25) RASH, HEADACHE Home Medications Home Medications Active Aspirin 325 Mg Tablet 325 Mg PO DAILY@0830 Amlodipine Besylate 5 Mg Tablet 5 Mg PO Q24H Metoprolol Tartrate 25 Mg Tablet 12.5 Mg PO BID Nitrostat SL* (Nitroglycerin) 0.4 Mg Tablet 0.4 Mg SL Q5MIN PRN Atorvastatin Calcium 20 Mg Tablet 80 Mg PO DAILY Clopidogrel (Clopidogrel Bisulfate) 75 Mg Tablet 75 Mg PO DAILY Do not stop medication unless instructed by prescriber. Reported Stool Softener (Docusate Sodium) Unknown Strength Capsule Unknown Dose PO BID Centrum Silver Men Tablet (Multivit-Min/FA/Lycopen/Lutein) 1 Each Tablet 1 Tab PO DAILY Vitamin E (Vitamin E (Dl, Acetate)) 400 Unit Capsule 400 Unit PO DAILY Vitamin D (Cholecalciferol) 1,000 Unit Tablet 4,000 Unit PO DAILY Potassium Chloride 20 Meq Tablet.er 1 Tab PO DAILY PRN 30 Days Lasix (Furosemide) 40 Mg Tablet 1 Tab PO DAILY PRN 30 Days [place] 10-325 Tablet (Acetaminophen/Hydrocodone Bitart) 1 Each Tablet 1 Tab PO Q8H PRN 30 Days Ferrous Gluconate 324 Mg Tablet 324 Mg PO BID Proair Hfa (Albuterol Sulfate) 1 Puff Inh 2 Puffs INH Q4HPRN PRN 21 Days SPIRIVA inhaler (Tiotropium [place]) 18 Mcg/1 Cap Aero 1 Cap INH DAILY Flomax* (Tamsulosin HCl) 0.4 Mg Cap.sr.24h 2 Cap PO DAILY Losartan Potassium 100 Mg Tablet 0.5 Tablet PO DAILY Symbicort 160-4.5 Mcg Inhaler (Budesonide/Formoterol Fumarate) 10.2 Gm Hfa.aer.ad 2 Puffs INH BID Past Medical History Past Medical History Hypertension COPD Coronary artery disease status post stent Congestive heart failure Bladder/skin/prostate cancer Past Surgical History Surgical History Comment Coronary artery disease status post stent in 2021 Skin graft surgery in the left lower extremity Family History Family History: (COPD) Chronic obstructive lung disease MOTHER (Cancer) Malignant carcinoid tumor MOTHER, Onset:60 years & older (Breast) Past Social History Smoking: Cigarettes (1/2 a pack daily for more than 60 years) Alcohol Use: Rarely Drug Use: Marijuana Lives with: Family Lives In: Home Occupation: retired ROS ROS Constitutional: No fever, dizziness, positive weakness. no change in appetite/weight HEENT: No blurring of the vision, No sore throat, epistaxis, tinnitus Cardiovascular: no chest pain/discomfort, palpitations, no syncope. Positive pedal edema Respiratory: As HPI Gastrointestinal: no abdominal pain, no nausea, vomiting. no diarrhea, no constipation, melena. Genitourinary: No frquency, urgency, incontinence, nocturia. No dysuria, hematuria Musculoskeletal: No arthralgia, myalgia Endocrine: No polydipsia, polyuria. No heat or cold intolerance Neurologic: No headache, vertigo. No weakness, no numbness or tingling of extremities Psychiatric: No hallucinations/delusions, no anhedonia, no suicidal ideation\ Hematologic: No bleeding or bruises Exam Vitals: Vital Signs Date Time Temp Pulse Resp B/P (MAP) Pulse Ox O2 Delivery O2 Flow Rate FiO2 08/14/25 04:18 71 20 92 Nasal Cannula* 4 36 08/14/25 03:20 98.2 147/72 (97) General: General: Obese gentleman sitting at the edge of the bed leaning forward, Awake and Alert, mild acute distress. HEENT: Conjunctiva pink, Sclera clear, Mucus Membranes moist. Neck: Supple without masses and tenderness. Resp: Diminished breath sounds bilaterally, basilar crackle Heart: Regular Rate and rhythm, normal S1 and S2 Abdomen: Obese abdomen Soft and non tender Extremities: Bilateral lower extremity edema 2+, hyperpigmented changes, Skin: large 4 x 4 mass to his left forearm Neurological: Speech is clear, alert, and oriented x 4, no gross neurological deficits Diagnostic Data Last Recorded Lab Results: 08/14/2510908/14/25109 Advance Care Planning Advanced Care plannin - 30 Minutes Additional Plan 80 years old male with history of COPD, CHF, coronary artery disease status post stent, bladder/skin cancer/prostate cancer presented to the ED due to shortness of breaths Acute hypoxic hypercapnic respiratory failure COPD exacerbation No leukocytosis, normal procalcitonin ABG showed: PH 7.3, pCO2 57.3 PO2 53.8, bicarb 28.4, Respiratory acidosis Chest x-ray:Bilateral perihilar interstitial prominence. No focal consolidation, pleural effusion or pneumothorax. Patient is on 4 L oxygen with saturation 93% Ceftriaxone azithromycin started we will continue Solu-Medrol 125 mg received DuoNeb q.4 scheduled COVID RSV flu is pending Hypoventilation syndrome BMI is 52.1 Serum Bicarb is 37.2, useful screening and diagnostic marker for chronic hypoventilation Patient need noninvasive ventilation to improve gas exchange and reduced morbidity CHF exacerbation Last echocardiography was in 2019: Mild concentric hypertrophy. LVEF is 60-65%. Received Lasix 60 mg in the ED, we will continue 40 b.i.d. Blood pressure is 140 over 72, We will continue home medication after reconciliation GDM T optimization based on CHF type Nicotine dependence Heavy smoker, almost two pack a day Nicotine patch ordered Other comorbidities chronic bilateral lower extremity pain, depression Continue home medication after reconciliation Code Status: full DVT prophylaxis: Lovenox Analgesia/sedation: Line/tube: Peripheral GI prophylaxis: Protonix Nutrition: Heart healthy PT: Yes Prognosis: Guarded Disposition: Continue monitoring patient in PCU floor with telemetry Karolina Blue MD Internal Medicine Resident Addendum I personally reviewed the chart, labs and imaging and reviewed the patient with the team. I agree with the assessment and plan as documented by the resident. Patient was seen through remote audio-visual assessment through HIPAA compliance setup. Date of Service: Aug 14, 2025 Billing Provider: AJIT SALAS MD,KAROLINA, RES Aug 14, 2025 05:17 AJIT SLAAS MD Aug 14, 2025 07:06
[2025-08-14] MEDS: HYDROcodone/acetaminophen 10/325mg tab PO ONE (05:50)
[2025-08-14] MEDS: CefTRIAXone 2gm/D5W 50ml BAG 50 ML IV ONE (06:10)
[2025-08-14 06:19] LABS: INFLUENZA TYPE A ANTIGEN RAPID NEGATIVE (Negative); INFLUENZA TYPE B ANTIGEN RAPID NEGATIVE (Negative)
[2025-08-14] MEDS: nicotine 21mg patch - 24 hr TD ONE (07:19)
[2025-08-14] MEDS: furosemide 10 MG/1 ML 10ml inj IV SCH (07:21)
[2025-08-14] MEDS: azithromycin/NS 500mg/250ml 250 ML IV SCH (07:24)
[2025-08-14] MEDS: K and/or MAG REPLACEMENT MC SCH (07:34)
[2025-08-14] MEDS: docusate sod 100mg capsule PO SCH (07:35)
[2025-08-14] MEDS: ipratropium/albuterol 3ml nebule NEB SCH (07:57)
[2025-08-14] MEDS ORDERED: heparin, porcine 5000 units/ml vial SQ SCH (08:00)
--- NOTE | 2025-08-14 09:13 | VASCULAR REPORT ---
[facility] Vascular Department [address] [address] [email or web address] LAC CONMISSION JUANCARLOS Name : MATTIE WALSH Date : 08/14/2025 Accession# : [id number] Birthdate : 1945 Sex : M Insert Operator : Thee Muhammad, RVT Age : [address]Y [address] : KAROLINA HANDLEY, Preliminary Report The above named patient was referred for a NON-INVASIVE LOWER EXTREMITY VENOUS EXAMINATION. The evaluation includes grayscale imaging, color flow Doppler and spectral analysis of the major deep and superficial lower extremity veins. Bilateral Lower Extremity Venous Study for DVT Patient IN-PATIENT InaRSation's Bilateral lower extremity edema/shortness of breath Risk Factors Cardiac Disease Obesity Vein Imaging (Right) CFV (R): Compressible, Spontaneous, Respirophasic, Augmentation Reflux: ms SFJ (R): Compressible, Spontaneous, Respirophasic, Augmentation Reflux: ms FEM (R): Compressible, Spontaneous, Respirophasic, Augmentation Reflux: ms POP (R): Compressible, Spontaneous, Respirophasic, Augmentation Reflux: ms DFV (R): Compressible, Spontaneous, Respirophasic, Augmentation Reflux: ms PTV (R): Compressible, Spontaneous, Respirophasic, Augmentation Reflux: ms GSV (R): Compressible, Spontaneous, Respirophasic, Augmentation Reflux: ms Peroneals (R): Unable to clearly visualize Reflux: ms Vein Imaging (Left) CFV (L): Compressible, Spontaneous, Respirophasic, Augmentation Reflux: ms SFJ (L): Compressible, Spontaneous, Respirophasic, Augmentation Reflux: ms FEM (L): Compressible, Spontaneous, Respirophasic, Augmentation Reflux: ms POP (L): Compressible, Spontaneous, Respirophasic, Augmentation Reflux: ms DFV (L): Compressible, Spontaneous, Respirophasic, Augmentation Reflux: ms PTV (L): Compressible, Spontaneous, Respirophasic, Augmentation Reflux: ms GSV (L): Compressible, Spontaneous, Respirophasic, Augmentation Reflux: ms Peroneals (L): Unable to clearly visualize Reflux: ms Impression: No thrombus detected by image in the deep or superficial venous systems of bilateral lower extremities. All vessels interrogated were compressible and augment with distal compressions. Spontaneous, respirophasic flow is noted throughout bilateral lower extremities. Unable to clearly visualize the peroneal veins bilaterally due to patient body habitus/edema.
[2025-08-14] MEDS: nitroGLYCERIN 1gm ointment UD TP ONE (09:39)
--- NOTE | 2025-08-14 10:34 | PROGRESS NOTE ---
Clinical Note Clinical Note Progress Note: RN reports that patient having high blood pressure. Patient examined. H&P reviewed. Patient was admitted earlier this morning. We will start him on nitroglycerin patch, resume amlodipine and losartan. SOFI NOEL MD Aug 14, 2025 10:34
--- NOTE | 2025-08-14 18:48 | CARDIOLOGY REPORT ---
APPROVED REPORT EXAM: Comprehensive 2D, Doppler, and color-flow Echocardiogram. Patient Location: ER 6 Blood Pressure: 135/77 mmHg Heart Rate: 70's bpm Rhythm: SINUS Indications CONGESTIVE HEART FAILURE COPD SHORTNESS OF BREATH HYPERTENSION STENT x3 2019 Director Bioinformatics: Marcus ALVES MD Previous echo: 08-14-19 [facility] EF 60-65%, mLVH, trMR, trTR, VIKI, RVE Aortic Valve AoV Peak [place]. 197.7 cm/s AoV VTI 33.9 cm AO Peak GR. 15.6 mmHg AO Mean GR. 9 mmHg Mitral Valve MV Peak Gr. 3 mmHg MV PHT 68 ms MVA (PHT) 3.24 cm2 MV VMax 87.6 cm/s LEFT VENTRICLE Normal appearing LV size and wall thickness. Overall systolic function is normal. TDS LVEF is about 65-70%. RIGHT VENTRICLE RV appears normal in size and function. ATRIA The left atrium size appears normal. AORTIC VALVE Probabale trileaflet AV appears grossly normal without obvious stenosis. No insufficiency. MITRAL VALVE Mild MV annular calcification without obvious stenosis. Trace regurgitation. TDS TRICUSPID VALVE TV appears structurally normal with trace regurgitation. TDS PULMONIC VALVE Pulmonic valve is not well visualized. TDS GREAT VESSELS Aortic root is not well visualized. TDS PERICARDIUM Normal pericardium. No effusion. Other Information Study Quality: Technically Difficult due to body habitus, COPD, patient positioning. No Plax/psax windows. Limited apical window. Patient would not remain still during exam. Conclusion Techinically difficult study. Normal appearing LV size and wall thickness. Overall systolic function is normal. LVEF is about 65-70%. RV appears normal in size and function. The left atrium size appears normal. Probabale trileaflet AV appears grossly normal without obvious stenosis. No insufficiency. Mild MV annular calcification without obvious stenosis. Trace regurgitation. TV appears structurally normal with trace regurgitation. Normal pericardium. No effusion.
[2025-08-14] MEDS: enoxaparin 40mg/0.4ml syringe SQ SCH (21:56)
[2025-08-15] VITALS (24 sets, daily range): BP systolic 118–169; BP diastolic 75–94; PULSE 66–107; RESP 13–25; TEMP 97–97.8; O2SAT 89–96
[2025-08-15] MEDS: HYDROcodone/acetaminophen 10/325mg tab PO PRN (00:47)
[2025-08-15] MEDS ORDERED: LYR25C PO (00:49)
[2025-08-15] MEDS: ondansetron/PF 4mg/2ml inj IV PRN (04:17)
[2025-08-15 07:52] LABS: MEAN PLATELET VOLUME 8.0 FL (7.4-10.4); RED CELL DISTRIBUTION WIDTH 16.8 % (11.5-14.5)
[2025-08-15 08:06] LABS: CREATININE 0.93 MG/DL (0.60-1.10); eCRCL 76 ML/MIN; eGFR 79 ML/MIN
[2025-08-15 08:17] LABS: TOTAL CARBON DIOXIDE 41.0 MMOL/L (24-32)
[2025-08-15] MEDS: CefTRIAXone/D5W-Rocephin 1gm 50 ML IV SCH (08:42)
[2025-08-15] MEDS ORDERED: ASPI-10 PO (16:22)
[2025-08-15] MEDS ORDERED: AMLO5TAB PO (16:22)
[2025-08-15] MEDS ORDERED: NITR0.4T48 SL (16:22)
[2025-08-15] MEDS ORDERED: ATOR-2 PO (16:22)
[2025-08-15] MEDS ORDERED: CLOP75TA33 PO (16:22)
[2025-08-15] MEDS ORDERED: LOP12.5T PO (16:22)
--- NOTE | 2025-08-15 16:38 | PROGRESS NOTE ---
Daily Progress Note Providers to CC ~ Antibiotic Timeout Antibiotic Ordered?: Yes Subjective Patient's daughter who works at this facility, at bedside. Reports that patient is quite independent befor this episode. Patient refuses to keep BiPAP on. Objective Vital Signs Date Time Temp Pulse Resp B/P (MAP) Pulse Ox O2 Delivery O2 Flow Rate FiO2 08/15/25 15:03 80 21 Bi-pap 50 08/15/25 15:00 97.0 126/82 (97) 95 08/15/25 11:55 11.0 Result Diagram: 08/15/2565708/15/25657 Morbidly obese male, in no acute distress. Patient is quite somnolent but opens eyes to his name HEENT normocephalic atraumatic extraocular movements are intact Neck supple Chest: Clear to auscultation, decreased breath sounds Heart: Regular rate rhythm, Abdomen distended pendulous, no organomegaly No cyanosis clubbing or edema. 2+ pitting edema Neuro exam grossly nonfocal. Other Results Medications reviewed Problem\Assessment\Plan 80 years old male with a history of CHF, COPD, CAD status post stent, obstructive sleep apnea with a BMI of 52, presented to the ER for evaluation of shortness of breaths. Patient lives at home alone and has a caregiver. 1. Acute hypoxemic hypercapnic respiratory failure: Continue BiPAP. We will check ABG 2. CO2 narcosis: Patient is noncompliant with his BiPAP. Discussed with RN to ensure that patient is on his BiPAP. 3. COPD with exacerbation: Continue inhaled bronchodilators 4. Acute on chronic CHF with preserved EF: Patient has a an LV ejection fraction 60-65%. He is on Lasix 40 mg b.i.d. which will be decreased to once daily 5. Ongoing tobacco use: Daughter states that patient smokes more than two packs of cigarettes per day. Nicotine patch if necessary 6. Code status: Full code Critical care time spent in excess of 35 minutes. Date of Service: Aug 15, 2025 Billing Provider: SOFI NOEL MD Common Visit Codes: 72512-[id number] CARE 30-74 MIN SOFI NOEL MD Aug 15, 2025 16:38
[2025-08-15 17:11] LABS: ABG BASE EXCESS 12.3 mmol/L (-2.0-3.0); ABG HCO3 43.1 mmol/L (21.0-28.0); ABG OXYGEN SATURATION 97.7 % (94.0-98.0); ABG PCO2 (T) 82.5 mmHg (35.0-48.0); ABG PH (T) 7.336 (7.350-7.450); ABG PO2 (T) 98.9 mmHg (83.0-108.0); ALLEN'S TEST POSITIVE; FCOHb 2.0 % (0.5-1.5); FHHb 2.3 % (0.0-5.0); FIO2 50.0 mmHg/%; FMetHb 0.1 % (0.0-1.5); FO2Hb 95.6 % (94.0-98.0); MODE MASK - BIPAP; PATIENT TEMPERATURE 37.0; RESPIRATORY RATE 12 b/min; TOTAL HEMOGLOBIN 17.2 G/dl (13.5-17.5)
[2025-08-15] MEDS: lactose-reduced food (Ensure Enlive) - 237ml bottle PO SCH (18:57)
[2025-08-15 20:44] LABS: ABG BASE EXCESS 12.5 mmol/L (-2.0-3.0); ABG HCO3 42.4 mmol/L (21.0-28.0); ABG OXYGEN SATURATION 92.2 % (94.0-98.0); ABG PCO2 (T) 77.4 mmHg (35.0-48.0); ABG PH (T) 7.357 (7.350-7.450); ABG PO2 (T) 63.4 mmHg (83.0-108.0); ALLEN'S TEST POSITIVE; FCOHb 1.8 % (0.5-1.5); FHHb 7.7 % (0.0-5.0); FIO2 35.0 mmHg/%; FMetHb 0.0 % (0.0-1.5); FO2Hb 90.5 % (94.0-98.0); MODE MASK - BIPAP; PATIENT TEMPERATURE 37.2; RESPIRATORY RATE 24 b/min; TOTAL HEMOGLOBIN 16.8 G/dl (13.5-17.5)
[2025-08-16] VITALS (28 sets, daily range): BP systolic 117–157; BP diastolic 77–90; PULSE 42–98; RESP 12–21; TEMP 97–98.9; O2SAT 88–97
[2025-08-16 01:26] LABS: ABG BASE EXCESS 8.9 mmol/L (-2.0-3.0); ABG HCO3 35.5 mmol/L (21.0-28.0); ABG OXYGEN SATURATION 96.8 % (94.0-98.0); ABG PCO2 (T) 52.6 mmHg (35.0-48.0); ABG PH (T) 7.444 (7.350-7.450); ABG PO2 (T) 77.5 mmHg (83.0-108.0); ALLEN'S TEST POSITIVE; FCOHb 1.7 % (0.5-1.5); FHHb 3.1 % (0.0-5.0); FIO2 32.0 mmHg/%; FMetHb 0.0 % (0.0-1.5); FO2Hb 95.2 % (94.0-98.0); MODE MASK - BIPAP; PATIENT TEMPERATURE 36.2; RESPIRATORY RATE 20 b/min; TOTAL HEMOGLOBIN 17.3 G/dl (13.5-17.5)
[2025-08-16 07:17] LABS: MEAN PLATELET VOLUME 8.2 FL (7.4-10.4); RED CELL DISTRIBUTION WIDTH 16.8 % (11.5-14.5)
[2025-08-16 07:37] LABS: CREATININE 0.80 MG/DL (0.60-1.10); eCRCL 88 ML/MIN; eGFR > 90 ML/MIN
[2025-08-16 07:41] LABS: TOTAL CARBON DIOXIDE 42.6 MMOL/L (24-32)
[2025-08-16 08:40] LABS: ABG BASE EXCESS 14.0 mmol/L (-2.0-3.0); ABG HCO3 43.9 mmol/L (21.0-28.0); ABG OXYGEN SATURATION 92.1 % (94.0-98.0); ABG PCO2 (T) 73.5 mmHg (35.0-48.0); ABG PH (T) 7.391 (7.350-7.450); ABG PO2 (T) 60.2 mmHg (83.0-108.0); ALLEN'S TEST POSITIVE; FCOHb 1.1 % (0.5-1.5); FHHb 7.8 % (0.0-5.0); FIO2 32.0 mmHg/%; FMetHb 0.1 % (0.0-1.5); FO2Hb 91.0 % (94.0-98.0); MODE MASK - BIPAP; PATIENT TEMPERATURE 36.4; RESPIRATORY RATE 16 b/min; TOTAL HEMOGLOBIN 17.2 G/dl (13.5-17.5)
[2025-08-16] MEDS: acetaZOLAMIDE IV 500mg inj IV SCH (08:46)
[2025-08-16] MEDS: magnesium hydroxide 30ml (MOM) UD suspension PO PRN (09:59)
[2025-08-16] MEDS ORDERED: albuterol 2.5 MG/3 ML nebule NEB PRN (10:15)
[2025-08-16] MEDS: budesonide 0.5mg/2ml UD nebule IH SCH (10:16)
[2025-08-16] MEDS ORDERED: albuterol 2.5 MG/3 ML nebule NEB SCH (10:17)
--- NOTE | 2025-08-16 11:46 | PROGRESS NOTE ---
Daily Progress Note Providers to CC ~ Antibiotic Timeout Antibiotic Ordered?: Yes Subjective No new complaints, patient is seen resting comfortably.Family at bedside, daughter concerned patient is going to want to leave AMA and not go to LTAC. Patient does not like wearing the BIPAP mask Objective Vital Signs Date Time Temp Pulse Resp B/P (MAP) Pulse Ox O2 Delivery O2 Flow Rate FiO2 08/16/25 11:38 97 20 High Flow Salter 15.0 08/16/25 11:33 94 71 08/16/25 06:00 97.8 147/80 (102) Result Diagram: 08/16/2563708/16/25637 Morbidly obese male, in no acute distress. Patient is quite somnolent but opens eyes to his name HEENT normocephalic atraumatic extraocular movements are intact Neck supple Chest: Clear to auscultation, decreased breath sounds Heart: Regular rate rhythm, Abdomen distended pendulous, no organomegaly No cyanosis clubbing or edema. 2+ pitting edema Neuro exam grossly nonfocal. Other Results Medications reviewed Problem\Assessment\Plan 80 years old male with a history of CHF, COPD, CAD status post stent, obstructive sleep apnea with a BMI of 52, presented to the ER for evaluation of shortness of breaths. Patient lives at home alone and has a caregiver. 1. Acute hypoxemic hypercapnic respiratory failure with compensation: Continue BiPAP. Monitor ABG periodically, Diamox 250 mgm X one 2. CO2 narcosis: Patient is noncompliant with his BiPAP. RN to ensure that patient is on his BiPAP. 3. COPD with exacerbation: Continue inhaled bronchodilators , IV antibiotics, and IV steroids. 4. Acute on chronic CHF with preserved EF: Patient has a an LV ejection fraction 60-65%. Lasix PRN. 5. Ongoing tobacco use: Daughter states that patient smokes more than two packs of cigarettes per day. Nicotine patch if necessary 6. Code status: Full code Date of Service: Aug 16, 2025 Billing Provider: SOFI NOEL MD Common Visit Codes: [id number] INP/OBS CARE(HIGH) SOFI NOEL MD Aug 16, 2025 11:46
[2025-08-16 13:38] LABS: ABG BASE EXCESS 9.1 mmol/L (-2.0-3.0); ABG HCO3 36.5 mmol/L (21.0-28.0); ABG OXYGEN SATURATION 93.7 % (94.0-98.0); ABG PCO2 (T) 57.8 mmHg (35.0-48.0); ABG PH (T) 7.415 (7.350-7.450); ABG PO2 (T) 62.8 mmHg (83.0-108.0); ALLEN'S TEST POSITIVE; FCOHb 1.9 % (0.5-1.5); FHHb 6.2 % (0.0-5.0); FIO2 32.0 mmHg/%; FMetHb 0.3 % (0.0-1.5); FO2Hb 91.6 % (94.0-98.0); MODE MASK - BIPAP; PATIENT TEMPERATURE 36.3; RESPIRATORY RATE 16 b/min; TOTAL HEMOGLOBIN 16.8 G/dl (13.5-17.5)
[2025-08-16] MEDS ORDERED: non-formulary drug (Budesonide/Formoterol Fumarate (Symbicort 160-4.5 Mcg Inhaler) 2 PUFFS INH SCH (20:00)
[2025-08-16] MEDS: metoprolol tartrate 12.5mg (1/2 tablet) PO SCH (20:56)
[2025-08-17] VITALS (26 sets, daily range): BP systolic 112–127; BP diastolic 74–90; PULSE 64–108; RESP 13–24; TEMP 97.3–98.8; O2SAT 88–95
[2025-08-17 07:28] LABS: MEAN PLATELET VOLUME 8.0 FL (7.4-10.4); RED CELL DISTRIBUTION WIDTH 17.0 % (11.5-14.5)
[2025-08-17 07:48] LABS: CREATININE 1.07 MG/DL (0.60-1.10); TOTAL CARBON DIOXIDE 33.4 MMOL/L (24-32); eCRCL 66 ML/MIN; eGFR 67 ML/MIN
[2025-08-17] MEDS: nicotine 21mg patch - 24 hr TD SCH (11:40)
[2025-08-17 15:14] LABS: ABG BASE EXCESS 3.4 mmol/L (-2.0-3.0); ABG HCO3 32.0 mmol/L (21.0-28.0); ABG OXYGEN SATURATION 94.9 % (94.0-98.0); ABG PCO2 (T) 63.6 mmHg (35.0-48.0); ABG PH (T) 7.320 (7.350-7.450); ABG PO2 (T) 79.0 mmHg (83.0-108.0); ALLEN'S TEST POSITIVE; FCOHb 1.1 % (0.5-1.5); FHHb 5.0 % (0.0-5.0); FIO2 48.0 mmHg/%; FMetHb 0.1 % (0.0-1.5); FO2Hb 93.8 % (94.0-98.0); MODE Salter NASAL CANNULA; PATIENT TEMPERATURE 37.1; TOTAL HEMOGLOBIN 18.1 G/dl (13.5-17.5)
--- NOTE | 2025-08-17 20:09 | PROGRESS NOTE ---
Daily Progress Note Providers to CC ~ Antibiotic Timeout Antibiotic Ordered?: Yes Subjective Patient is seen in presence of nursing staff James, patient's daughter , [id number] roommate Flor and case investigator Rochelle today . Patient is morbidly obese retaining CO2. He is accepted in LTAC but patient do not want to go to LTAC and family members wants him to go to LTAC. As per daughter Radha if he will not go to LTAC she will take the patient home on hospice because she feels that he has any way going to decline after hospital discharge. She mentioned his father is very stubborn and he was very hypoxemic at home but he never wanted to come to the hospital but after multiple efforts they were able to bring him to the hospital. Patient feels that his [facility] insurance will not cover LTAC case investigator Rochelle working on discharge plan. I will repeat the ABG and respiratory therapy to treat and evaluate order placed already. Objective Vital Signs Date Time Temp Pulse Resp B/P (MAP) Pulse Ox O2 Delivery O2 Flow Rate FiO2 08/17/25 19:50 69 24 High Flow [place]ter 6.0 08/17/25 19:39 94 48 08/17/25 10:50 98.2 112/74 (87) Result Diagram: 08/17/25 0708 08/17/25 0708 General-patient not in any acute distress, alert awake oriented, morbidly obese, chronically ill-appearing HEENT-atraumatic normocephalic, neck supple without elevated JVD, no thyromegaly or carotid bruit. No lymphadenopathy bilaterally. Eyes-no icterus or pallor seen in eyes Chest-decreased breath sound to auscultation bilaterally, breathing nonlabored no tachypnea, no wheezing, no crepitation, no crackles. Heart-S1-S2 normal, regular heart rate no murmur Abdomen bowel sounds positive on auscultation, soft nondistended nontender no guarding, no rigidity Skin no active skin rash Neurology-grossly intact, nonfocal alert awake Extremity- no pedal edema able to move all 4 extremities Psychiatry - patient is not confused or agitated cooperated during physical examination Problem\Assessment\Plan 80 years old male with a history of CHF, COPD, CAD status post stent, obstructive sleep apnea with a BMI of 52, presented to the ER for evaluation of shortness of breaths. Patient lives at home alone and has a caregiver. 1. Acute hypoxemic hypercapnic respiratory failure with compensation: Continue BiPAP. will Monitor ABG periodically, Diamox 250 mgm X one 2. CO2 narcosis: Patient is noncompliant with his BiPAP. RN to ensure that patient is on his BiPAP. 3. COPD with exacerbation: Continue inhaled bronchodilators , IV antibiotics, and IV steroids. 4. Acute on chronic CHF with preserved EF: Patient has a an LV ejection fraction 60-65%. Lasix PRN. 5. Ongoing tobacco use: Daughter states that patient smokes more than two packs of cigarettes per day. Nicotine patch if necessary 6. Code status: Full code August 17, 2025- Patient is seen in presence of nursing staff James, patient's daughter , [id number] roommate Flor and case investigator Rochelle today . Patient is morbidly obese retaining CO2. He is accepted in LTAC but patient do not want to go to LTAC and family members wants him to go to LTAC. As per daughter Radha if he will not go to LTAC she will take the patient home on hospice because she feels that he has any way going to decline after hospital discharge. She mentioned his father is very stubborn and he was very hypoxemic at home but he never wanted to come to the hospital but after multiple efforts they were able to bring him to the hospital. Patient feels that his VA insurance will not cover LTAC case investigator Rochelle working on discharge plan. I will repeat the ABG and respiratory therapy to treat and evaluate order placed already. Patient's current condition is guarded patient needs physical therapy evaluation before his discharge. Follow the patient in AM Date of Service: Aug 17, 2025 Billing Provider: KELVIN MATTHEW MD Common Visit Codes: [id number] INP/OBS CARE(HIGH) KELVIN MATTHEW MD Aug 17, 2025 20:09
[2025-08-17] MEDS: HYDROcodone/acetaminophen 10/325mg tab PO PRN (21:08)
[2025-08-18] VITALS (13 sets, daily range): BP systolic 129–157; BP diastolic 72–93; PULSE 60–96; RESP 14–20; TEMP 97.4–98.6; O2SAT 88–95
--- NOTE | 2025-08-18 02:46 | ELECTROCARDIOGRAPH REPORT ---
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 Crystal Sweet Measurements Intervals Sharon Rate: 60 P: 48 DC: 296 QRS: 15 QRSD: 116 T: 66 QT: 461 QTc: 461 Interpretive Statements Sinus rhythm Prolonged DC interval Incomplete right bundle branch block Low voltage, precordial leads Baseline wander in lead(s) V3 Electronically Signed On 08-18-2025 5:55:[address] Crystal Sweet Please click the below link to view image of tracing.
[2025-08-18] MEDS: methylPREDNISolone sod succ/PF 40mg inj. IV SCH (08:19)
[2025-08-18 08:27] LABS: MEAN PLATELET VOLUME 8.0 FL (7.4-10.4); RED CELL DISTRIBUTION WIDTH 17.1 % (11.5-14.5)
[2025-08-18 08:54] LABS: CREATININE 0.96 MG/DL (0.60-1.10); TOTAL CARBON DIOXIDE 37.9 MMOL/L (24-32); eCRCL 74 ML/MIN; eGFR 76 ML/MIN
--- NOTE | 2025-08-18 17:11 | PROGRESS NOTE ---
Daily Progress Note Providers to CC ~ Antibiotic Timeout Antibiotic Ordered?: Yes Subjective time spent today on patient care 60 minutes. Patient was seen twice in visit today. Patient was confused his oxygen was out of his nose in his hand in the morning , BISCUITWARE BRUSHER was present in room. Patient was seen in presence of respiratory therapist and he refused for nebulizer treatment in everything else. Later today around 3:30 p.m. be had family meeting done with multiple relatives including nursing staff Sylvia, patient's daughter , heagmsqd-dh-whn roommate Flor and pillowcase maker Rochelle. Benefit and alternative of treatment discussed with patient and family members in detail. Hospice option with home discharge also discussed with the patient and he chose to go to rehab and he is willing to compliant with the treatment in family members also enforced this to the patient. As per pillowcase maker in a accepting facility is available to discharge tomorrow. Objective Vital Signs Date Time Temp Pulse Resp B/P (MAP) Pulse Ox O2 Delivery O2 Flow Rate FiO2 08/18/25 15:00 98.6 66 19 129/91 (104) 94 High Flow Nasal Cannula 6.0 08/18/25 11:15 N/A Result Diagram: 08/18/25 0813 08/18/25 0813 General-patient not in any acute distress, alert awake morbidly obese, chronically ill-appearing HEENT-atraumatic normocephalic, neck supple without elevated JVD, no thyromegaly or carotid bruit. No lymphadenopathy bilaterally. Eyes-no icterus or pallor seen in eyes Chest-decreased breath sound to auscultation bilaterally, breathing nonlabored no tachypnea, no wheezing, no crepitation, no crackles. Heart-S1-S2 normal, regular heart rate no murmur Abdomen bowel sounds positive on auscultation, soft nondistended nontender no guarding, no rigidity Skin no active skin rash Neurology-grossly intact, nonfocal alert awake Extremity- no pedal edema able to move all 4 extremities Psychiatry - patient is not confused or agitated cooperated during physical examination Problem\Assessment\Plan 80 years old male with a history of CHF, COPD, CAD status post stent, obstructive sleep apnea with a BMI of 52, presented to the ER for evaluation of shortness of breaths. Patient lives at home alone and has a caregiver. 1. Acute hypoxemic hypercapnic respiratory failure with compensation: Continue BiPAP. will Monitor ABG periodically, Diamox 250 mgm X one 2. CO2 narcosis: Patient is noncompliant with his BiPAP. RN to ensure that patient is on his BiPAP. 3. COPD with exacerbation: Continue inhaled bronchodilators , IV antibiotics, and IV steroids. 4. Acute on chronic CHF with preserved EF: Patient has a an LV ejection fraction 60-65%. Lasix PRN. 5. Ongoing tobacco use: Daughter states that patient smokes more than two packs of cigarettes per day. Nicotine patch if necessary 6. Code status: Full code August 17, 2025- Patient is seen in presence of nursing staff James, patient's daughter , nyaqsyoc-gg-wqe roommate Flor and pillowcase maker Rochelle today . Patient is morbidly obese retaining CO2. He is accepted in LTAC but patient do not want to go to LTAC and family members wants him to go to LTAC. As per daughter Radha if he will not go to LTAC she will take the patient home on hospice because she feels that he has any way going to decline after hospital discharge. She mentioned his father is very stubborn and he was very hypoxemic at home but he never wanted to come to the hospital but after multiple efforts they were able to bring him to the hospital. Patient feels that his [facility] insurance will not cover LTAC pillowcase maker Rochelle working on discharge plan. I will repeat the ABG and respiratory therapy to treat and evaluate order placed already. August 18, 2025 time spent today on patient care 60 minutes. Patient was seen twice in visit today. Patient was confused his oxygen was out of his nose in his hand , BISCUITWARE BRUSHER was present in room. Patient was seen in presence of respiratory therapist in the morning and he refused for nebulizer treatment in everything else. Later today around 3:30 p.m. be had family meeting done with multiple relatives including nursing staff Sylvia, patient's daughter , veovodnw-iw-ybh roommate Flor and pillowcase maker Rochelle. Benefit and alternative of treatment discussed with patient and family members in detail. Hospice option with home discharge discussed with the patient and he chose to go to rehab and he is willing to compliant with the treatment in family members also enforced this to the patient. As per pillowcase maker in a accepting facility is available to discharge tomorrow. Patient's current condition is guarded patient needs physical therapy evaluation before his discharge. Follow the patient in AM Date of Service: Aug 18, 2025 Billing Provider: KELVIN MATTHEW MD Common Visit Codes: 74018-[id number] CARE 30-74 MIN KELVIN MATTHEW MD Aug 18, 2025 17:11
[2025-08-18] MEDS: polyvinyl alcohol eye drops 15ML BOTTLE EACHEYE PRN (19:49)
[2025-08-19] VITALS (15 sets, daily range): BP systolic 105–136; BP diastolic 58–73; PULSE 59–103; RESP 12–18; TEMP 97–98; O2SAT 91–95
[2025-08-19 07:34] LABS: MEAN PLATELET VOLUME 8.2 FL (7.4-10.4); RED CELL DISTRIBUTION WIDTH 16.6 % (11.5-14.5)
[2025-08-19 08:08] LABS: CREATININE 1.16 MG/DL (0.60-1.10); TOTAL CARBON DIOXIDE 35.1 MMOL/L (24-32); eCRCL 61 ML/MIN; eGFR 61 ML/MIN
[2025-08-19] MEDS: magnesium citrate 296ml oral solution PO ONE (09:35)
[2025-08-19] MEDS ORDERED: mineral oil 133ml enema RC PRN (13:45)
[2025-08-19] MEDS: bisacodyl 10mg suppository rectal RC STA (14:03)
--- NOTE | 2025-08-19 20:16 | DISCHARGE SUMMARY ---
Discharge Summary Providers to CC ~ Discharge Summary Admission Diagnosis: RESPIRATORY FAILURE, COPD EXACERBATION, CHF EXACERBATION Hospital Course DATE OF ADMISSION: August 14, 2025 DATE OF DISCHARGE:August 19, 2025 CBC testing done on August 19, 2025 WBC 10.9 hemoglobin 16.6 hematocrit 50.8 platelet count 204, sed rate 5. Serum chemistry done on August 19, 2025 sodium 144 potassium 3.4 creatinine 1.16 GFR 61 normal liver enzymes procalcitonin 0.19. Blood culture showed no growth after five days CHEST,SINGLE VIEWIMPRESSION: 1. Heart failure pattern. No focal consolidation. VL VENOUSNo thrombus detected by image in the deep or superficial venous systems of bilateral lower extremities. All vessels interrogated were compressible and augment with distal compressions. Spontaneous, respirophasic flow is noted throughout bilateral lower extremities. ECHOCARDIOGRAM-Conclusion Techinically difficult study. Normal appearing LV size and wall thickness. Overall systolic function is normal. LVEF is about 65-70%. RV appears normal in size and function. The left atrium size appears normal. Probabale trileaflet AV appears grossly normal without obvious stenosis. No insufficiency. Mild MV annular calcification without obvious stenosis. Trace regurgitation. TV appears structurally normal with trace regurgitation. Normal pericardium. No effusion. Discharge Diagnosis\Comment: 1. Acute hypoxemic hypercapnic respiratory failure with compensation 2. CO2 narcosis: Patient is noncompliant with his BiPAP. 3. COPD with exacerbation 4. Acute on chronic CHF with preserved EF, LV ejection fraction 60-65%. 5. Ongoing tobacco use Operations\Procedures: None Consultants: None Complications: None Condition on DC: Stable for transfer Discharge Summary: 80 years old male with a history of CHF, COPD, CAD status post stent, obstructive sleep apnea with a BMI of 52, presented to the ER for evaluation of shortness of breaths. Patient lives at home alone and has a caregiver. 1. Acute hypoxemic hypercapnic respiratory failure with compensation: Continue BiPAP. will Monitor ABG periodically, Diamox 250 mgm X one 2. CO2 narcosis: Patient is noncompliant with his BiPAP. RN to ensure that patient is on his BiPAP. 3. COPD with exacerbation: Continue inhaled bronchodilators , IV antibiotics, and IV steroids. 4. Acute on chronic CHF with preserved EF: Patient has a an LV ejection fraction 60-65%. Lasix PRN. 5. Ongoing tobacco use: Daughter states that patient smokes more than two packs of cigarettes per day. Nicotine patch if necessary 6. Code status: Full code August 17, 2025- Patient is seen in presence of nursing staff James, patient's daughter , lvutbgiy-pj-qhl roommate Flor and rn case mgr Rochelle today . Patient is morbidly obese retaining CO2. He is accepted in LTAC but patient do not want to go to LTAC and family members wants him to go to LTAC. As per daughter Radha if he will not go to LTAC she will take the patient home on hospice because she feels that he has any way going to decline after hospital discharge. She mentioned his father is very stubborn and he was very hypoxemic at home but he never wanted to come to the hospital but after multiple efforts they were able to bring him to the hospital. Patient feels that his [facility] insurance will not cover LTAC rn case mgr Rochelle working on discharge plan. I will repeat the ABG and respiratory therapy to treat and evaluate order placed already. August 18, 2025 - Patient was confused his oxygen was out of his nose in his hand , PIPE STRAIGHTENER was present in room. Patient was seen in presence of respiratory therapist in the morning and he refused for nebulizer treatment in everything else. Later today around 3:30 p.m. be had family meeting done with multiple relatives including nursing staff Sylvia, patient's daughter , hcfwrsiy-xj-too roommate Flor and rn case mgr Rochelle. Benefit and alternative of treatment discussed with patient and family members in detail. Hospice option with home discharge discussed with the patient and he chose to go to rehab and he is willing to compliant with the treatment in family members also enforced this to the patient. As per rn case mgr in a accepting facility is available to discharge tomorrow. Patient is feeling better he has been afebrile and getting discharged to rehab in stable condition. Medication reconciliation done for rehab facility. Patient is seen and examined on the day of discharge. All labs, diagnostic workup and discharge plan discussed with patient and family members in detail before her discharge. All questions and queries answered to the best of my professional medical knowledge. I heard patient's concerns and address appropriately. manager storage involved in patient's discharge plan. General-patient not in any acute distress, alert awake morbidly obese, chronically ill-appearing HEENT-atraumatic normocephalic, neck supple without elevated JVD, no thyromegaly or carotid bruit. No lymphadenopathy bilaterally. Eyes-no icterus or pallor seen in eyes Chest-decreased breath sound to auscultation bilaterally, breathing nonlabored no tachypnea, no wheezing, no crepitation, no crackles. Heart-S1-S2 normal, regular heart rate no murmur Abdomen bowel sounds positive on auscultation, soft nondistended nontender no guarding, no rigidity Skin no active skin rash Neurology-grossly intact, nonfocal alert awake Extremity- no pedal edema able to move all 4 extremities Psychiatry - patient is not confused or agitated cooperated during physical examination *Problems/Diagnosis: (1) Acute on chronic diastolic heart failure Status: Acute (2) Acute exacerbation of chronic obstructive airways disease Status: Acute (3) Hypercarbia Status: Acute (4) Hypoxemia Status: Acute Total Time Spent on D/C: > 30 Minutes Date of Service: Aug 19, 2025 Billing Provider: KELVIN MATTHEW MD Common Visit Codes: 54857-DLL/OBS DISCH DAY >30min KELVIN MATTHEW MD Aug 19, 2025 20:15
== END 2025-08-19 17:54 | DRG 291 ==
LOC: ER 00:28 → ED HOLD 04:46 → EDBEDREQ 16:09 → PCU 3S 17:45
PROVIDERS: ADMIT Internal Medicine Sleep Medicine; ATTEND Internal Medicine
PROC: 5A09357 Assistance with Respiratory Ventilation, Less than 24 Consecutive Hours, Continuous Positive Airway Pressure (ICD-10-PCS; principal; 2025-08-14)
PROC: 5A09357 Assistance with Respiratory Ventilation, Less than 24 Consecutive Hours, Continuous Positive Airway Pressure (ICD-10-PCS; 2025-08-15)
PROC: 5A0935A Assistance with Respiratory Ventilation, Less than 24 Consecutive Hours, High Flow/Velocity Cannula (ICD-10-PCS; 2025-08-15)
PROC: 5A09357 Assistance with Respiratory Ventilation, Less than 24 Consecutive Hours, Continuous Positive Airway Pressure (ICD-10-PCS; 2025-08-16)
PROC: 5A0935A Assistance with Respiratory Ventilation, Less than 24 Consecutive Hours, High Flow/Velocity Cannula (ICD-10-PCS; 2025-08-16)
PROC: 5A09357 Assistance with Respiratory Ventilation, Less than 24 Consecutive Hours, Continuous Positive Airway Pressure (ICD-10-PCS; 2025-08-17)
PROC: 5A0935A Assistance with Respiratory Ventilation, Less than 24 Consecutive Hours, High Flow/Velocity Cannula (ICD-10-PCS; 2025-08-17)
PROC: 5A09357 Assistance with Respiratory Ventilation, Less than 24 Consecutive Hours, Continuous Positive Airway Pressure (ICD-10-PCS; 2025-08-18)
PROC: 5A0935A Assistance with Respiratory Ventilation, Less than 24 Consecutive Hours, High Flow/Velocity Cannula (ICD-10-PCS; 2025-08-18)
PROC: 5A0935A Assistance with Respiratory Ventilation, Less than 24 Consecutive Hours, High Flow/Velocity Cannula (ICD-10-PCS; 2025-08-19)
DX: I11.0 Hypertensive heart disease with heart failure (principal); I50.33 Acute on chronic diastolic (congestive) heart failure; J96.01 Acute respiratory failure with hypoxia; J96.02 Acute respiratory failure with hypercapnia; J44.1 Chronic obstructive pulmonary disease with (acute) exacerbation; Z68.43 Body mass index [BMI] 50.0-59.9, adult; R65.10 Systemic inflammatory response syndrome (SIRS) of non-infectious origin without acute organ dysfunction; Z20.822 Contact with and (suspected) exposure to COVID-19; G47.33 Obstructive sleep apnea (adult) (pediatric); E78.00 Pure hypercholesterolemia, unspecified; N40.0 Benign prostatic hyperplasia without lower urinary tract symptoms; E66.01 Morbid (severe) obesity due to excess calories; F17.210 Nicotine dependence, cigarettes, uncomplicated; I25.10 Atherosclerotic heart disease of native coronary artery without angina pectoris; K21.9 Gastro-esophageal reflux disease without esophagitis; Z88.0 Allergy status to penicillin; Z88.5 Allergy status to narcotic agent; Z79.01 Long term (current) use of anticoagulants; Z79.899 Other long term (current) drug therapy; Z79.84 Long term (current) use of oral hypoglycemic drugs; Z85.841 Personal history of malignant neoplasm of brain; Z91.199 Patient's noncompliance with other medical treatment and regimen due to unspecified reason; Z95.5 Presence of coronary angioplasty implant and graft
CPT/HCPCS: 36415; 36600; 71045; 80048; 80053; 80076; 82803; 83605; 83735; 83880; 84132; 84145; 84484; 85018; 85025; 85651; 87040; 87077; 87081; 87804; 87811; 93005; 93308; 93970; 94640; 94660; 94760; 96365; 96375; 97161; 97530; 97535; 99291; A6213; A6590; G0378; J0456; J0696; J0780; J1120; J1650; J1938; J2405; J2919; J7040